=== PATIENT | male | born 1960 | race Caucasian/White ===

== ENCOUNTER 2021-05-07 07:35 | Day surgery (SDC) | payer OTHER ==
[~2021-05-07] VITALS: Ht 180.3 cm; Wt 84.0 kg
[~2021-05-07 07:35] MED LIST: CRESTOR5 MG PO; OMEPRAZOLE20 MG PO
--- NOTE | 2021-05-07 09:17 | NUR ---
05/07/21 0917 Sheets,Nneka 0904 PT ARRIVED TO PACU ON 3L VIA NC, VSS. PT WAKES EASILY AND DENIES PAIN AND PT ENCOURAGED TO PASS GAS.
--- NOTE | 2021-05-12 10:35 | PATH ---
[facility] [address], [place] [address] Signed SPECIMEN(S): A CECUM BIOPSY INFLAMMATORY LESION SPECIMEN SOURCE: A. CECUM BIOPSY INFLAMMATORY LESION CLINICAL HISTORY: Family history of colon cancer; gallbladder polyps. Postop: Inflammatory lesion of cecum MICROSCOPIC DESCRIPTION: Histologic sections of all submitted blocks are examined by light microscopy. These findings, together with the gross examination, support the pathologic diagnosis. FINAL PATHOLOGIC DIAGNOSIS: Colon, cecum, inflammatory lesion, biopsy: - Colonic mucosa with features of submucosal lipoma (1 mm) and focal dilated mucosal vessels. - Negative for dysplasia or malignancy. NAL:bg:C2NR GROSS DESCRIPTION: The specimen, labeled "TU, 1," and designated on the requisition "cecum biopsy," is received in formalin and consists of one figueroa, elongated, and soft tissue fragment that measures 0.6 cm in greatest dimension. The specimen is entirely submitted in cassette (A1). AI (under the direct supervision of a pathologist) The Gross Description was prepared using a voice recognition system. The report was reviewed for accuracy; however, sound-alike word errors, addition and/or deletions may occur. If there is any question about this report, please contact Client Services. PERFORMING LABORATORY: The technical component was performed by [facility], [address] [place] [id number] (Soldering Inspector: Breanne Shultz MD; CLIA# [id number]). [facility], [address] [address] (CLIA# [id number]). Diagnostician: Sue Mayer MD Pathologist Electronically Signed 05/12/2021 PATIENT NAME: KWESI BARILLAS PATHOLOGY DATE OF : 64 REPORT #: [id number] PHYSICIAN: [facility] PCP: FRANCIE HERNANDEZ MD REPORT IS CONFIDENTIAL AND NOT TO BE RELEASED WITHOUT AUTHORIZATION [address] [address] Signed Copies: ~ PATIENT NAME: KWESI BARILLAS PATHOLOGY DATE OF : 64 REPORT #: [id number] PHYSICIAN: [facility] PCP: FRANCIE HERNANDEZ MD REPORT IS CONFIDENTIAL AND NOT TO BE RELEASED WITHOUT AUTHORIZATION
--- NOTE | 2021-05-12 12:22 | OR ---
[facility] [address] [place], [place] [address] Signed DATE OF OPERATION: 05/07/2021 SURGEON: Erasmo Armas MD PREOPERATIVE DIAGNOSIS: Family history of colon cancer (father age 59). POSTOPERATIVE DIAGNOSIS: Mild inflammatory lesion of cecum (biopsied), otherwise normal. PROCEDURE: Total colonoscopy to cecum with biopsy of cecum. ANESTHESIA: Intravenous sedation, fentanyl 100 mcg and Versed 7 mg. INDICATION: This 60-year-old white man is a patient of ARCHIE Ramsay at [facility]. 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 He was not particularly symptomatic at that time however. The patient does take Prilosec for reflux symptoms and a statin drug. It is noted that his abdominal wall soft tissue mass is clinically consistent with lipoma, it is not particularly symptomatic. He does not have significant symptoms related to the gallbladder currently despite the findings on the ultrasound. Of note, he does have family history of colon cancer in his father at age 59 and the patient himself has never had a colonoscopy. I have recommended colonoscopy based on that fact. He understands the risks of bleeding, infection, perforation related to colonoscopy and wished to proceed. FINDINGS: The prep was adequate, but not great. Complete colonoscopy was undertaken of the cecum. There was a small inflammatory area of the cecum, which was biopsied, but did not represent a polyp or likely colitis or other finding. The remaining colon was normal. DESCRIPTION OF PROCEDURE: The patient was brought to the endoscopy suite and placed in lateral decubitus position, given intravenous sedation to the point of slurred speech and nystagmus. Full Electronically Signed By: ERASMO ARMAS MD 05/12/21 1222 PATIENT NAME: KWESI BARILLAS OPERATIVE REPORT DATE OF : 64 REPORT #: [id number] PHYSICIAN: ERASMO ARMAS MD PCP: FRANCIE HERNANDEZ MD REPORT IS CONFIDENTIAL AND NOT TO BE RELEASED WITHOUT AUTHORIZATION [facility] [address] [place], [place] [address] Signed cardiopulmonary monitoring was maintained. Digital rectal examination was normal. An Olympus video colonoscope was passed in the rectum and manipulated throughout the colon. Irrigation was undertaken as necessary. There was no solid stool, but the prep was not as good as usual; I suspect he did not have as low-fiber diet as had been intended. In any case, the scope was ultimately passed to the cecum area that had not been intubated small amount of fresh blood and a small inflammatory change. This did not represent a polyp or manifestation of colitis per se, but the area was biopsied nevertheless. The scope was then withdrawn and examination throughout showed no sign of abnormality specifically no polyps, diverticular formation, colitis, or cancer. Retroflex view was normal as well. The scope was removed and the patient was taken to the recovery room in good condition. CONCLUDING DIAGNOSIS: No evidence of polyps or cancer. PLAN: 1. Recommend a repeat colonoscopy in 5 years based on family history (father with colon cancer at age 59). 2. Regarding the gallbladder, if biliary symptoms should develop, consideration is made for cholecystectomy. The so-called "polyp" of the gallbladder wall more likely does not represent an adherent gallstone rather than a polyp per se. 3. 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 He will return to the ongoing care of [facility]. I am happy to see him in the [facility] if desired in the future. Certainly, if symptoms should develop regarding his gallbladder, consideration would be made for cholecystectomy. MD FARZAD Fernandez/STEFFI /[id number] cc: ARCHIE Paz Electronically Signed By: ERASMO ARMAS MD 05/12/21 1222 PATIENT NAME: KWESI BARILLAS OPERATIVE REPORT DATE OF : 64 REPORT #: [id number] PHYSICIAN: ERASMO ARMAS MD PCP: FRANCIE HERNANDEZ MD REPORT IS CONFIDENTIAL AND NOT TO BE RELEASED WITHOUT AUTHORIZATION [facility] [address] [place], [place] [address] Signed Copies: KELSEY PRUITT ~ Electronically Signed By: ERASMO ARMAS MD 05/12/21 1222 PATIENT NAME: KWESI BARILLAS ESTRELLA OPERATIVE REPORT DATE OF : 64 REPORT #: [id number] PHYSICIAN: ERASMO ARMAS MD PCP: FRANCIE HERNANDEZ MD REPORT IS CONFIDENTIAL AND NOT TO BE RELEASED WITHOUT AUTHORIZATION
== END 2021-05-07 09:40 | disposition home or self-care (01) ==
LOC: DS 07:35 → OPS 07:35 → DS 08:15 → OPS 09:40
PROVIDERS: ATTEND Surgery
PROC: 0DBH8ZX Excision of Cecum, Via Natural or Artificial Opening Endoscopic, Diagnostic (ICD-10-PCS; principal; 2021-05-07 08:15)
DX: D17.79 Benign lipomatous neoplasm of other sites (principal); K81.1 Chronic cholecystitis; Z86.19 Personal history of other infectious and parasitic diseases; Z80.0 Family history of malignant neoplasm of digestive organs
CPT/HCPCS: 99153; G0500; J2250; J3010; U0003